=== PATIENT | female | born 1965 | race Hispanic/Latino ===

== ENCOUNTER 2023-06-11 14:44 | Inpatient (IN) | payer OTHER ==
[~2023-06-11] VITALS: Ht 152.4 cm; Wt 40.8 kg
[2023-06-11 15:45] LABS: BASOPHILS % 0.3 % (0.0-1.0); HEMATOCRIT 38.8 % (34.2-44.1); HEMOGLOBIN 11.8 g/dL (12.0-16.0); LYMPHOCYTES # (AUTO) 0.7 (1.0-3.2); LYMPHOCYTES % 11.4 % (18.0-39.1); MEAN CORPUSCULAR HEMOGLOBIN 25.3 pg (28-32); MEAN CORPUSCULAR HGB CONC 30.4 g/dL (31-35); MEAN CORPUSCULAR VOLUME 83.1 fL (81-99); MONOCYTES # (AUTO) 0.5 (0.2-0.8); MONOCYTES % 8.4 % (4.4-11.3); NEUTROPHILS # (AUTO) 4.8 (2.1-6.9); NEUTROPHILS % 79.7 % (38.7-80.0); PLATELET COUNT 372 x10e3/uL (140-360); RED BLOOD COUNT 4.67 x10e6/uL (3.6-5.1); RED CELL DISTRIBUTION WIDTH 17.7 % (11.7-14.4); WHITE BLOOD COUNT 6.07 x10e3/uL (4.8-10.8)
[2023-06-11 15:56] LABS: ALBUMIN 2.9 g/dL (3.5-5.0); ALBUMIN/GLOBULIN RATIO 0.5 (0.8-2.0); ANION GAP 21.2 mmol/L (8-16); CALCIUM 10.3 mg/dL (8.4-10.2); CREATININE, SERUM 0.71 mg/dL (0.57-1.11); TOTAL PROTEIN 8.9 g/dL (6.5-8.1)
[2023-06-11] MEDS: SODIUM CHLORIDE 0.9% 1000ML 1,000 ML IV ONE ×2 (15:58→18:36)
[2023-06-11] MEDS: Morphine 4mg INJECTION 4 MG/ML INJ IV ONE (15:59)
[2023-06-11] MEDS: ONDANSETRON HCL INJ 2MG/ML 2ML 2 MG/ML VIAL IV STA (16:00)
[2023-06-11 16:02] LABS: POTASSIUM 5.2 mmol/L (3.5-5.1)
[2023-06-11 16:09] LABS: BILIRUBIN,TOTAL 1.1 mg/dL (0.2-1.2)
[2023-06-11] MEDS ORDERED: IOPAMIDOL 370 MG/ML 100 ML INFUS..BTL INJ ONE (16:10)
[2023-06-11 16:17] LABS: CLARITY,URINE HAZY (CLEAR); COLOR,URINE YELLOW (YELLOW)
[2023-06-11 16:18] LABS: BACTERIA,URINE FEW /HPF; BILIRUBIN,URINE SMALL (NEGATIVE); GLUCOSE, URINE NEGATIVE (NEGATIVE); KETONES,URINE 1+ (NEGATIVE); LEUKOCYTE ESTERASE ,URINE NEGATIVE (NEGATIVE); NITRITE,URINE NEGATIVE (NEGATIVE); PH,URINE 5.5 (5 - 7); PROTEIN,URINE DIPSTICK 1+ (NEGATIVE); URINE UROBILINOGEN 1 mg/dL (0.2 - 1)
[2023-06-11 16:19] LABS: EPITHELIAL CELLS,URINE MODERATE /LPF
[2023-06-11] MEDS: SODIUM CHLORIDE 0.9% 1000ML 1,000 ML IV SCH (18:45)
[2023-06-11] MEDS: ONDANSETRON HCL INJ 2MG/ML 2ML 2 MG/ML VIAL IV PRN (19:01)
[2023-06-11] MEDS: METRONIDAZOLE 500MG/NS 100ML 100 ML IV SCH (19:01)
[2023-06-11 19:15] LABS: TROPONIN I 0.009 ng/mL (0-0.300)
[2023-06-11] MEDS: BENZOCAINE/TETRACAINE/BUTAMBEN AERO SPRAY 56 GM CAN TOP ONE (19:54)
[2023-06-11 21:00] VITALS: BP 123/81; PULSE 96; RESP 18; TEMP 97.4; O2SAT 97
[2023-06-11] MEDS ORDERED: SPIRONOLACTONE25 MG PO (21:16)
[2023-06-11] MEDS ORDERED: FUROSEMIDE40 MG PO (21:16)
[2023-06-11] MEDS ORDERED: ONDANSETRON ODT8 MG PO (21:17)
[2023-06-11 21:21] VITALS: BP 123/81; PULSE 96; RESP 18; TEMP 97.4; O2SAT 97; O2SAT 99
[2023-06-12] VITALS (9 sets, daily range): BP systolic 115–122; BP diastolic 67–85; PULSE 91–101; RESP 17–20; TEMP 97.7–98.6; O2SAT 98–100
[2023-06-12] MEDS ORDERED: METOPROLOL TARTRATE INJ 1 MG/ML VIAL IV PRN (04:30)
[2023-06-12] MEDS ORDERED: ACETAMINOPHEN 650 MG SUPP PR PRN (04:30)
[2023-06-12] MEDS: Morphine 4mg INJECTION 4 MG/ML INJ IV PRN (06:17)
[2023-06-12 07:02] LABS: BASOPHILS % 0.5 % (0.0-1.0); EOSINOPHILS % 0.5 % (0.0-6.0); HEMATOCRIT 33.7 % (34.2-44.1); LYMPHOCYTES # (AUTO) 0.6 (1.0-3.2); LYMPHOCYTES % 15.3 % (18.0-39.1); MEAN CORPUSCULAR HEMOGLOBIN 25.1 pg (28-32); MEAN CORPUSCULAR HGB CONC 29.7 g/dL (31-35); MEAN CORPUSCULAR VOLUME 84.7 fL (81-99); MONOCYTES # (AUTO) 0.5 (0.2-0.8); MONOCYTES % 12.3 % (4.4-11.3); NEUTROPHILS # (AUTO) 2.9 (2.1-6.9); NEUTROPHILS % 71.2 % (38.7-80.0); PLATELET COUNT 357 x10e3/uL (140-360); RED BLOOD COUNT 3.98 x10e6/uL (3.6-5.1); RED CELL DISTRIBUTION WIDTH 17.9 % (11.7-14.4); WHITE BLOOD COUNT 4.05 x10e3/uL (4.8-10.8)
[2023-06-12 07:22] LABS: ALBUMIN 2.6 g/dL (3.5-5.0); ALBUMIN/GLOBULIN RATIO 0.5 (0.8-2.0); ANION GAP 17.3 mmol/L (8-16); BILIRUBIN,TOTAL 0.6 mg/dL (0.2-1.2); CALCIUM 9.3 mg/dL (8.4-10.2); CREATININE, SERUM 0.61 mg/dL (0.57-1.11); POTASSIUM 4.3 mmol/L (3.5-5.1); TOTAL PROTEIN 7.5 g/dL (6.5-8.1)
[2023-06-12 07:46] LABS: TROPONIN I 0.01 ng/mL (0-0.300)
[2023-06-12 08:00] LABS: CHOL/HDL RATIO 3.4 (3.0-3.6); MAGNESIUM 1.9 MG/DL (1.3-2.1); PHOSPHORUS 3.7 MG/DL (2.3-4.7)
[2023-06-12 08:50] LABS: FREE T4 (FREE THYROXINE) 1.26 ng/dL (0.8-1.8); THYROID STIMULATING HORMONE 1.925 uIU/mL (0.350-4.940)
[2023-06-12 15:57] LABS: TROPONIN I 0.001 ng/mL (0-0.300)
[2023-06-13] VITALS (10 sets, daily range): BP systolic 116–128; BP diastolic 70–87; PULSE 90–97; RESP 18–21; TEMP 97.6–98.2; O2SAT 95–100
[2023-06-13 05:40] LABS: BASOPHILS % 0.3 % (0.0-1.0); EOSINOPHILS % 0.3 % (0.0-6.0); HEMATOCRIT 32.4 % (34.2-44.1); HEMOGLOBIN 9.4 g/dL (12.0-16.0); LYMPHOCYTES # (AUTO) 0.5 (1.0-3.2); LYMPHOCYTES % 16.8 % (18.0-39.1); MEAN CORPUSCULAR HEMOGLOBIN 25.5 pg (28-32); MONOCYTES # (AUTO) 0.4 (0.2-0.8); MONOCYTES % 15.1 % (4.4-11.3); NEUTROPHILS % 67.2 % (38.7-80.0); PLATELET COUNT 324 x10e3/uL (140-360); RED BLOOD COUNT 3.68 x10e6/uL (3.6-5.1); WHITE BLOOD COUNT 2.92 x10e3/uL (4.8-10.8)
[2023-06-13 06:01] LABS: ALBUMIN 2.5 g/dL (3.5-5.0); ALBUMIN/GLOBULIN RATIO 0.6 (0.8-2.0); ANION GAP 18.8 mmol/L (8-16); BILIRUBIN,TOTAL 0.7 mg/dL (0.2-1.2); CALCIUM 9.3 mg/dL (8.4-10.2); CREATININE, SERUM 0.57 mg/dL (0.57-1.11); POTASSIUM 3.8 mmol/L (3.5-5.1); TOTAL PROTEIN 6.9 g/dL (6.5-8.1)
[2023-06-13] MEDS ORDERED: DEXTROSE 50% SYRINGE 50 ML IV PRN (11:30)
[2023-06-13] MEDS: DEXTROSE 50% SYRINGE 50 ML IV ONE (11:39)
[2023-06-13] MEDS: DEXTROSE 5%/0.9% SOD CHL 1,000 ML IV SCH (11:39)
[2023-06-13 11:42] LABS: INR 1.22; PROTHROMBIN TIME 15.7 seconds (11.9-14.5)
[2023-06-14] VITALS (9 sets, daily range): BP systolic 109–126; BP diastolic 56–82; PULSE 86–94; RESP 16–21; TEMP 97.6–98.7; O2SAT 96–100
[2023-06-14] MEDS ORDERED: LIDOCAINE HCL 1% LOCAL INJ 20 ML VIAL ONE (13:05)
[2023-06-14] MEDS ORDERED: IOPAMIDOL 370 MG/ML 100 ML INFUS..BTL INJ ONE (13:05)
[2023-06-14] MEDS ORDERED: MIDAZOLAM HCL 2 MG/2 ML VIAL ONE (13:06)
[2023-06-14] MEDS ORDERED: SODIUM CHLORIDE 0.9% 250ML 250 ML ONE (13:06)
[2023-06-14] MEDS ORDERED: FENTANYL CITRATE/PF 100MCG/2 ML INJ ONE (13:07)
[2023-06-15] VITALS (10 sets, daily range): BP systolic 108–130; BP diastolic 68–81; PULSE 86–96; RESP 16–19; TEMP 97.7–98.2; O2SAT 95–100
[2023-06-15] MEDS: DEXTROSE 50% SYRINGE 50 ML IV ONE (18:52)
[2023-06-16] VITALS (8 sets, daily range): BP systolic 110–129; BP diastolic 74–94; PULSE 82–103; RESP 18–19; TEMP 97.9–100.3; O2SAT 96–100
[2023-06-16 15:29] LABS: CALCIUM 8.5 mg/dL (8.4-10.2); CREATININE, SERUM 0.49 mg/dL (0.57-1.11); MAGNESIUM 1.5 MG/DL (1.3-2.1); PHOSPHORUS 1.6 MG/DL (2.3-4.7)
[2023-06-16] MEDS: POTASSIUM CHLORIDE 20MEQ/100ML 200 ML IV ONE (16:04)
[2023-06-17] VITALS (11 sets, daily range): BP systolic 123–137; BP diastolic 71–97; PULSE 87–96; RESP 16–18; TEMP 97.3–98; O2SAT 94–100
[2023-06-17] MEDS: POTASSIUM CHLORIDE 20MEQ/100ML 100 ML IV ONE ×4 (00:10→14:53)
[2023-06-17] MEDS: POTASSIUM PHOSPHATE 15 MM in SODIUM CHLORIDE 0.9% 250ML 250 ML IV ONE (00:22)
[2023-06-17 07:45] LABS: ANION GAP 10.2 mmol/L (8-16); CREATININE, SERUM 0.5 mg/dL (0.57-1.11); MAGNESIUM 1.2 MG/DL (1.3-2.1)
[2023-06-17 07:48] LABS: CALCIUM 6.9 mg/dL (8.4-10.2); POTASSIUM 2.2 mmol/L (3.5-5.1)
[2023-06-17] MEDS: DEXTROSE 5%/0.9% SOD CHL 1,000 ML IV SCH (09:32)
[2023-06-17] MEDS: CENTRAL TPN FORMULA 1 BAG IV SCH (21:08)
[2023-06-18] VITALS (10 sets, daily range): BP systolic 130–139; BP diastolic 82–94; PULSE 98–111; RESP 18–19; TEMP 97.5–98.5; O2SAT 95–100
[2023-06-18] MEDS: MAGNESIUM SULFATE 2GM/50ML 50 ML IV ONE (01:26)
[2023-06-18 07:59] LABS: ANION GAP 11.8 mmol/L (8-16); CALCIUM 8.1 mg/dL (8.4-10.2); CREATININE, SERUM 0.49 mg/dL (0.57-1.11)
[2023-06-18 09:13] LABS: POTASSIUM 2.8 mmol/L (3.5-5.1)
[2023-06-18] MEDS: POTASSIUM CHLORIDE 20MEQ/100ML 100 ML IV ONE ×2 (09:57→14:42)
[2023-06-18 18:11] LABS: ANION GAP 10.2 mmol/L (8-16); CALCIUM 8.1 mg/dL (8.4-10.2); CREATININE, SERUM 0.49 mg/dL (0.57-1.11)
[2023-06-18 18:20] LABS: POTASSIUM 3.2 mmol/L (3.5-5.1)
[2023-06-19] VITALS (8 sets, daily range): BP systolic 112–138; BP diastolic 72–96; PULSE 103–117; RESP 17–20; TEMP 97.8–98.6; O2SAT 96–100
[2023-06-19] MEDS: Morphine 4mg INJECTION 4 MG/ML INJ IV PRN (08:40)
[2023-06-19] MEDS: POTASSIUM CHLORIDE 10MEQ/100ML 100 ML IV ONE (20:24)
[2023-06-20] VITALS (10 sets, daily range): BP systolic 118–127; BP diastolic 74–89; PULSE 97–111; RESP 17–23; TEMP 97.6–98.3; O2SAT 96–100
[2023-06-20 07:15] LABS: CREATININE, SERUM 0.44 mg/dL (0.57-1.11)
[2023-06-21] VITALS: BP 134/88; PULSE 103; RESP 24; TEMP 97.9; O2SAT 98
[2023-06-21 04:00] VITALS: BP 129/92; PULSE 97; RESP 21; TEMP 98.1; O2SAT 98
[2023-06-21 07:43] VITALS: BP 132/87; PULSE 104; RESP 20; TEMP 97.5; O2SAT 99
[2023-06-21 08:00] VITALS: PULSE 102; RESP 18; O2SAT 98
[2023-06-21 08:40] LABS: ANION GAP 11.1 mmol/L (8-16); CALCIUM 8.1 mg/dL (8.4-10.2); CREATININE, SERUM 0.43 mg/dL (0.57-1.11); MAGNESIUM 1.9 MG/DL (1.3-2.1)
[2023-06-21 09:00] VITALS: BP 132/87; PULSE 102; RESP 18; TEMP 97.5; O2SAT 98
[2023-06-21 09:08] LABS: POTASSIUM 3.1 mmol/L (3.5-5.1)
[2023-06-21] MEDS ORDERED: DEXTROSE 50%-WA50 M1 IV (09:22)
[2023-06-21] MEDS ORDERED: ONDANSETRON4 MG/2 M1 IV (09:22)
[2023-06-21] MEDS ORDERED: FENTANYL1 EAC1 TOP (09:22)
[2023-06-21] MEDS ORDERED: ACETAMINOPHEN650 MG PR (09:22)
[2023-06-21] MEDS ORDERED: POTASSIUM CHLORIDE 20MEQ/100ML 100 ML IV SCH (09:30)
[2023-06-21] MEDS ORDERED: ONDANSETRON ODT4 MG PO (09:51)
[2023-06-21] MEDS ORDERED: BAQSIMI3 MG (09:51)
[2023-06-21] MEDS: POTASSIUM CHLORIDE 20MEQ/100ML 100 ML IV SCH (10:22)
[2023-06-21] MEDS: FENTANYL 50 MCG/HR PATCH TOP SCH (10:23)
[2023-06-21 11:18] VITALS: BP 141/89; PULSE 108; RESP 20; TEMP 98.1
== END 2023-06-21 19:40 | disposition home health service (06) | DRG 374 ==
LOC: ER 14:48 → ERHOLD 18:32 → MED/SURG3 21:30
PROVIDERS: ADMIT Internal Medicine; ATTEND Internal Medicine
PROC: 0DH63UZ Insertion of Feeding Device into Stomach, Percutaneous Approach (ICD-10-PCS; 2023-06-13)
PROC: BD12ZZZ Fluoroscopy of Stomach (ICD-10-PCS; 2023-06-13)
PROC: 02HV33Z Insertion of Infusion Device into Superior Vena Cava, Percutaneous Approach (ICD-10-PCS; 2023-06-16)
PROC: B548ZZA Ultrasonography of Superior Vena Cava, Guidance (ICD-10-PCS; 2023-06-16)
PROC: 3E0436Z Introduction of Nutritional Substance into Central Vein, Percutaneous Approach (ICD-10-PCS; principal; 2023-06-17)
DX: C78.6 Secondary malignant neoplasm of retroperitoneum and peritoneum (principal); E43 Unspecified severe protein-calorie malnutrition; C18.9 Malignant neoplasm of colon, unspecified; K56.609 Unspecified intestinal obstruction, unspecified as to partial versus complete obstruction; E87.1 Hypo-osmolality and hyponatremia; R64 Cachexia; Z68.1 Body mass index [BMI] 19.9 or less, adult; D63.8 Anemia in other chronic diseases classified elsewhere; E86.0 Dehydration; R53.1 Weakness; R53.83 Other fatigue; R74.01 Elevation of levels of liver transaminase levels; E87.5 Hyperkalemia; E83.52 Hypercalcemia; D75.839 Thrombocytosis, unspecified; R00.0 Tachycardia, unspecified; E11.9 Type 2 diabetes mellitus without complications; R53.81 Other malaise; E16.2 Hypoglycemia, unspecified; D72.819 Decreased white blood cell count, unspecified; Z79.69 Long term (current) use of other immunomodulators and immunosuppressants; Z20.822 Contact with and (suspected) exposure to COVID-19
CPT/HCPCS: 36415; 36569; 49083; 49440; 71045; 74018; 74019; 74177; 74470; 76705; 76942; 80048; 80053; 80061; 81001; 82550; 82948; 83036; 83690; 83735; 84100; 84439; 84443; 84484; 85025; 85610; 93005; 94799; 99152; 99153; 99252; 99285; C1725; C1729; J0690; J2001; J2250; J2270; J2405; J3475; J3480; J7030; J7042; J7050; J7799; Q9967; U0002

== ENCOUNTER 2023-11-08 23:33 | Emergency (ER) | payer OTHER ==
[~2023-11-08] VITALS: Ht 152.4 cm; Wt 40.8 kg
[~2023-11-08 23:33] MED LIST: ACETAMINOPHEN650 MG PR; BAQSIMI3 MG; DEXTROSE 50%-WA50 M1 IV; FENTANYL1 EAC1 TOP; FUROSEMIDE40 MG PO; ONDANSETRON ODT4 MG PO; ONDANSETRON ODT8 MG PO; ONDANSETRON4 MG/2 M1 IV; SPIRONOLACTONE25 MG PO
[2023-11-09 00:48] VITALS: RESP 20; TEMP 98.1
[2023-11-09] MEDS: ONDANSETRON HCL INJ 2MG/ML 2ML 2 MG/ML VIAL IV STA (03:40)
[2023-11-09] MEDS: HYDROMORPHONE 1MG/1ML INJ IV STA (03:40)
[2023-11-09 04:04] VITALS: PULSE 101; O2SAT 95
== END 2023-11-09 04:37 | disposition home or self-care (01) ==
LOC: ER 23:38
DX: R10.10 Upper abdominal pain, unspecified (principal); C18.9 Malignant neoplasm of colon, unspecified; C80.0 Disseminated malignant neoplasm, unspecified; R18.8 Other ascites; Z51.5 Encounter for palliative care
CPT/HCPCS: 74176; 99283; J1170; J2405